=== PATIENT | female | born 1945 | race Caucasian/White ===

== ENCOUNTER 2020-05-06 13:04 | Observation (INO) ==
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
[2020-05-06 13:51] LABS: Urine Bilirubin 1 mg/dl (NEGATIVE); Urine Ketone Negative (NEGATIVE); Urine Nitrite Negative (NEGATIVE); Urine Protein 15 mg/dL (NEGATIVE); Urine Urobilinogen Normal (NORMAL)
[2020-05-06 13:55] LABS: Hematocrit 49.1 % (37.0-47.0); Hemoglobin 15.5 gm/dL (12.5-16.0); Mean Cell Volume 92.6 fl (78-100); Mean Corpuscular Hemoglobin 29.2 pg (27-31); Mean Corpuscular Hgb Conc 31.6 g/dl (32-36); Mean Platelet Volume 11.5 fl (8-12.5); Neutrophil # 11.5 K/mm3 (1.3-6.0); Neutrophil % 83.9 % (42-75.0); Platelet Count 134 K/mm3 (150-450); Red Cell Distribution Width 13.4 % (11.5-14.0); White Blood Count 13.6 K/mm3 (4.0-10.5)
[2020-05-06 13:58] LABS: Albumin * 3.6 gm/dl (3.4-5.0); Anion Gap 9.6 mmol/L (6.8-13.8); Bilirubin, Total 0.5 mg/dL (0.0-1.1); Ca. Corrected For Albumin 9.8 mg/dL (8.4-10.2); Calcium * 9.8 mg/dL (7.9-10.9); Carbon Dioxide 35.1 mmol/L (24-32.6); Potassium 4.7 mmol/L (3.4-4.6); Total Protein 7.1 gm/dL (6.2-8.2)
[2020-05-06] MEDS ORDERED: ACETAMINOPHEN 1,000 MG/100 ML BTL IV ONE (14:02)
[2020-05-06 14:10] LABS: BUN/Creatinine Ratio 15.4 (9.0-21.6)
[2020-05-06 14:17] LABS: Urine Appearance Clear (CLEAR); Urine Blood 5 /ul (NEGATIVE); Urine Color Yellow
[2020-05-06 14:18] LABS: Urine Bacteria TRACE; Urine RBC TRACE /hpf (0-5); Urine WBC TRACE /hpf (0-5)
[2020-05-06] MEDS ORDERED: MORPHINE SULFATE 2 MG/ML DISP.SYRIN IV ONE (15:40)
[2020-05-06] MEDS ORDERED: ACETAMINOPHEN 500 MG TABLET PO PRN (15:55)
[2020-05-06] MEDS ORDERED: ONDANSETRON HCL/PF 2 MG/ML VIAL IV PRN (15:55)
[2020-05-06] MEDS ORDERED: MORPHINE SULFATE 4 MG/ML SYRG IV PRN (15:55)
[2020-05-06] MEDS: SENNOSIDES/DOCUSATE SODIUM 1 TAB TABLET PO SCH (21:50)
[2020-05-07] MEDS: oxyCODONE HCL/ACETAMINOPHEN 1 TAB TABLET PO PRN ×4 (05:42→20:45)
--- NOTE | 2020-05-07 07:55 | HP ---
Chief Complaint - Chief Complaint Date of Service: 05/07/20 Time of Service: 16:00 Chief Complaint: Fall, right knee pain and swelling History of Present Illness: Yisel is a 75 yo female that was getting out of bed this morning when she stepped and her foot got caught on the vent and she fell forward landing on her right knee. She immediately had pain and difficulty getting up. She was finally able to make her way to a phone and call for help. She was brought to the [facility] ER where she had imaging and found to have based on CT, " COMPLEX INTRA-ARTICULAR FRACTURE OF THE LATERAL FEMORAL CONDYLE ASSOCIATED LARGE TRAUMATIC JOINT EFFUSION." Ortho was called and recommended knee immobilizer and no weight bearing. She was in a lot of pain and unable to go home and care for herself as she lives a lone and has no family in the area to help care for herself. She has no help with ADLs and would be unable to care for herself at home in her current condition. Medical History (Last Reviewed 05/06/20 @ 17:28 by Edelmira Duenas RN) History of tibial fracture (Resolved) Onset Date: ~2011 right Hyponatremia (Chronic) Onset Date: ~1980 Hypertension (Chronic) Onset Date: Unknown History of diverticulosis (Resolved) Onset Date: ~1999 Depression (Chronic) Onset Date: Unknown CHF (congestive heart failure) (Chronic) Onset Date: ~2013 History of chicken pox (Resolved) Onset Date: Unknown Hx of cervical malignancy (Resolved) Onset Date: Unknown Anxiety disorder (Chronic) Onset Date: Unknown History of alcohol abuse (Resolved) Onset Date: ~2013 History of Onset Date: ~1980 History of cyst of breast Onset Date: ~1979 excision Surgical History: Surgical History (Last Reviewed 05/06/20 @ 17:28 by Edelmira Duenas RN) History of medial meniscus repair of right knee (Resolved) Onset Date: ~2011 H/O colonoscopy Onset Date: 02/22/06 Bagan-polyps 120cm, 60cm and rectum-hyperplastic H/O excision of ganglion cyst Onset Date: ~2005 right wrist H/O rectal polypectomy Onset Date: ~1985 History of dilation and curettage Onset Date: ~1978 followed by IUD-miscarriage History of total abdominal hysterectomy Onset Date: ~1982 Hx of tonsillectomy Onset Date: ~1953 Family History: Family History (Last Reviewed 05/06/20 @ 17:29 by Edelmira Duenas RN) Father , age 52 Suicide Mother , age 44 Cancer breast Hypertension Social History: (Last Updated 05/06/20 @ 13:20 by Sonia Salmon RN) Social History: Marital status: Single lives independently: Yes Service: No Tobacco: Smoking Status: Current every day smoker Smoking cigarettes per day: 20 Alcohol: alcohol intake: former Substance Use: substance use type: does not use Dietary Habits: caffeine: Yes Review Of Systems (GEN) - Review of Systems Generalized/Overall Review: Present: Weakness. Absent: Chills, Fever Respiratory: Absent: Cough, Shortness of Breath Cardiac: Absent: Chest Pain, Edema Abdominal: Absent: Nausea, Vomiting Genitourinary: Absent: Burning, Urgency Musculoskeletal: Present: Joint Pain, Joint Swelling Neurological: Absent: Headache, Anxiety Skin: Absent: Dryness, Rash Endocrine: Absent: Intolerance to Cold, Intolerance to Heat Immunizations: IMMUNIZATION HX Immunizations Up to Date Yes History of Influenza Vaccine Yes Hx Pneumococcal Vaccination Yes Allergies/Adverse Reactions: Allergies Allergy/AdvReac Type Severity Reaction Status Date / Time sulfamethoxazole AdvReac Nausea Verified 05/06/20 13:20 [From Bactrim] trimethoprim [From Bactrim] AdvReac Nausea Verified 05/06/20 13:20 Home Medications: HOME MEDICATIONS Aspirin [Aspirin Enteric Coated] 325 mg PO DAILY #0 tablet. 02/16/14 [Last Taken Unknown] Multivit-Min/FA/Lycopen/Lutein [[facility]] 1 tab PO DAILY #30 tab 02/16/14 [Last Taken Unknown] Thiamine HCl [Vitamin B-1] 100 mg PO DAILY #30 tab 02/16/14 [Last Taken Unknown] enalapril maleate 5 mg tablet 5 mg PO DAILY #90 tab 12/26/19 [Last Taken Unknown] carvedilol 6.25 mg tablet 6.25 mg PO BID #60 tab 04/30/20 [Last Taken Unknown] Furosemide [Lasix] 160 mg PO DAILY 05/06/20 [Last Taken Unknown] PARoxetine HCL [Paxil] 20 mg PO DAILY 05/06/20 [Last Taken Unknown] Potassium Chloride 20 meq PO BID 05/06/20 [Last Taken Unknown] Exam - Exam Vital Signs: Vital Signs - Last Taken Temp 36.0 C 05/07/20 06:59 Pulse 96 05/07/20 06:59 Resp 18 05/07/20 06:59 BP 143/54 05/07/20 06:59 Pulse Ox 94 05/07/20 06:59 Constitutional: Present: Alert, Oriented x3, Cooperative ENT Exam: Present: hearing grossly normal Eye Exam: bilateral eye: normal inspection Respiratory: Present: lungs clear, normal breath sounds, no respiratory distress Cardiovascular/Chest: Present: regular rate, rhythm, no murmur Peripheral Pulses: dorsalis-pedis (R): 2+, dorsalis-pedis (L): 2+, radial (R): 2+, radial (L): 2+ Abdomen: Present: Normal bowel sounds, soft, nontender, nondistended, no rebound tenderness Extremity: Present: other - right knee immobilzer on, diffuse swelling of right leg originating from knee Skin Exam: Present: normal color, warm/dry, no cyanosis Neurologic: Present: no motor/sensory deficits, alert, normal mood/affect, oriented x 3 Appearance: Present: appropriate appearance, appropriate insight Eye contact: Present: cooperative, good eye contact, normal speech Diagnostic Studies: Abnormal Lab Results 05/06/20 05/06/20 05/06/20 Range/Units 13:33 13:40 13:40 WBC 13.6 H (4.0-10.5) K/mm3 Hct 49.1 H (37.0-47.0) % MCHC 31.6 L (32-36) g/dl Plt Count 134 L (150-450) K/mm3 Immature Gran # (Auto) 0.05 H (0.000-0.0310) K/mm3 Neutrophils % 83.9 H (42-75.0) % Lymphocytes % 9.5 L (20-51) % Neutrophils # 11.5 H (1.3-6.0) K/mm3 Lymphocytes # 1.29 L (1.5-3.5) k/mm3 Sodium 143 H (132-142) mmol/L Plasma Sodium 144 H (130-142) mmol/L Potassium 4.7 H (3.4-4.6) mmol/L Carbon Dioxide 35.1 H (24-32.6) mmol/L Creatinine 1.43 H (0.4-1.4) mg/dL Est GFR (Non-Af Amer) 38 L (60-130) mL/min Random Glucose 151 H (70-110) mg/dL ALT 18 L (19-67) U/L Urine Protein 15 H (NEGATIVE) mg/dL Urine Blood 5 H (NEGATIVE) /ul Urine Bilirubin 1 H (NEGATIVE) mg/dl Urine WBC Trace H (0-5) /hpf Hyaline Casts 5-10 H (NONE) /LPF Microbiology 05/06/20 13:39 Urine Culture - Preliminary Urine,Catheterized No Growth Laboratory Results WBC 13.6 K/mm3 (4.0-10.5) H 05/06/20 13:40 RBC 5.30 M/mm3 (4.2-5.4) 05/06/20 13:40 Hgb 15.5 gm/dL (12.5-16.0) 05/06/20 13:40 Hct 49.1 % (37.0-47.0) H 05/06/20 13:40 MCV 92.6 fl (78-100) 05/06/20 13:40 MCH 29.2 pg (27-31) 05/06/20 13:40 MCHC 31.6 g/dl (32-36) L 05/06/20 13:40 RDW 13.4 % (11.5-14.0) 05/06/20 13:40 Plt Count 134 K/mm3 (150-450) L 05/06/20 13:40 MPV 11.5 fl (8-12.5) 05/06/20 13:40 Immature Gran % (Auto) 0.40 % (0.001-0.429) 05/06/20 13:40 Immature Gran # (Auto) 0.05 K/mm3 (0.000-0.0310) H 05/06/20 13:40 Neutrophils % 83.9 % (42-75.0) H 05/06/20 13:40 Lymphocytes % 9.5 % (20-51) L 05/06/20 13:40 Monocytes % 5.4 % (0.0-9) 05/06/20 13:40 Eosinophils % 0.4 % (0.0-3.0) 05/06/20 13:40 Basophils % 0.4 % (0.0-1.0) 05/06/20 13:40 Nucleated RBC % 0.0 k/mm3 (0-1) 05/06/20 13:40 Neutrophils # 11.5 K/mm3 (1.3-6.0) H 05/06/20 13:40 Lymphocytes # 1.29 k/mm3 (1.5-3.5) L 05/06/20 13:40 Monocytes # 0.7 k/mm3 (0.0-1.0) 05/06/20 13:40 Eosinophils # 0.1 k/mm3 (0.0-0.7) 05/06/20 13:40 Absolute Basophils 0.1 k/mm3 (0.0-0.1) 05/06/20 13:40 Sodium 143 mmol/L (132-142) H 05/06/20 13:40 Plasma Sodium 144 mmol/L (130-142) H 05/06/20 13:40 Potassium 4.7 mmol/L (3.4-4.6) H 05/06/20 13:40 Chloride 103 mmol/L (97-106) 05/06/20 13:40 Carbon Dioxide 35.1 mmol/L (24-32.6) H 05/06/20 13:40 Anion Gap 9.6 mmol/L (6.8-13.8) 05/06/20 13:40 BUN 22 mg/dL (3-23) 05/06/20 13:40 Creatinine 1.43 mg/dL (0.4-1.4) H 05/06/20 13:40 Est GFR (Non-Af Amer) 38 mL/min (60-130) L 05/06/20 13:40 BUN/Creatinine Ratio 15.4 (9.0-21.6) 05/06/20 13:40 Random Glucose 151 mg/dL (70-110) H 05/06/20 13:40 Calcium 9.8 mg/dL (7.9-10.9) 05/06/20 13:40 Calcium Adj for Albumin 9.8 mg/dL (8.4-10.2) 05/06/20 13:40 Total Bilirubin 0.5 mg/dL (0.0-1.1) 05/06/20 13:40 AST 16 U/L (0-48) 05/06/20 13:40 ALT 18 U/L (19-67) L 05/06/20 13:40 Alkaline Phosphatase 110 U/L (50-170) 05/06/20 13:40 Creatine Kinase 57 U/L (0-259) 05/06/20 13:40 Total Protein 7.1 gm/dL (6.2-8.2) 05/06/20 13:40 Albumin 3.6 gm/dl (3.4-5.0) 05/06/20 13:40 Urine Color Yellow 05/06/20 13:33 Urine Appearance Clear (CLEAR) 05/06/20 13:33 Urine pH 6.0 pH (5.0-7.0) 05/06/20 13:33 Ur Specific [place] 1.020 SP.GR. (1.005-1.010) 05/06/20 13:33 Urine Protein 15 mg/dL (NEGATIVE) H 05/06/20 13:33 Urine Glucose (UA) Negative mg/dL (NEGATIVE) 05/06/20 13:33 Urine Ketones Negative mg/dL (NEGATIVE) 05/06/20 13:33 Urine Blood 5 /ul (NEGATIVE) H 05/06/20 13:33 Urine Nitrate Negative (NEGATIVE) 05/06/20 13:33 Urine Bilirubin 1 mg/dl (NEGATIVE) H 05/06/20 13:33 Urine Ictotest Negative (NEGATIVE) 05/06/20 13:33 Prot Sulfosalicylic Acd 1+ mg/dL (0) 05/06/20 13:33 Urine Urobilinogen Normal EU/dl (NORMAL) 05/06/20 13:33 Ur Leukocyte Esterase Negative /ul (NEGATIVE) 05/06/20 13:33 Urine RBC Trace /hpf (0-5) 05/06/20 13:33 Urine WBC Trace /hpf (0-5) H 05/06/20 13:33 Ur Epithelial Cells Trace /hpf (0-5) 05/06/20 13:33 Calcium Oxalate Crystal Trace /hpf (NONE) 05/06/20 13:33 Urine Bacteria Trace (NONE) 05/06/20 13:33 Hyaline Casts 5-10 /LPF (NONE) H 05/06/20 13:33 Urine Culture Comments Culture to follow 05/06/20 13:33 SARS-CoV-2 (PCR) Not detected (ND) 05/06/20 15:53 Assessment/Plan - Narrative Narrative: Yisel is a 75 yo female with COMPLEX INTRA-ARTICULAR FRACTURE OF THE RIGHT LATERAL FEMORAL CONDYLE WITH ASSOCIATED LARGE TRAUMATIC JOINT EFFUSION. She is unable to complete ADLs at home in her current condition and will be admitted into observation for pain control, PT evaluation, and work with case management to see what assistance she can get at home. She also has mild acute kidney injury with elevated creatinine, sodium, and potassium. These are all mild and will be rechecked. May need additional fluids. - Assessment/Plan (1) Hypernatremia Problem: Acute (2) Hyperkalemia Problem: Acute (3) Acute kidney injury Problem: Acute (4) Fracture of medial condyle of femur Problem: Acute Qualifiers: Encounter type: initial encounter Fracture type: closed Fracture alignment: displaced Laterality: right Qualified Code(s): S72.431A - Displaced fracture of medial condyle of right femur, initial encounter for closed fracture
[2020-05-07 08:06] LABS: Hematocrit 48.6 % (37.0-47.0); Hemoglobin 15.3 gm/dL (12.5-16.0); Mean Corpuscular Hemoglobin 29.6 pg (27-31); Mean Corpuscular Hgb Conc 31.5 g/dl (32-36); Mean Platelet Volume 11.4 fl (8-12.5); Neutrophil # 10.4 K/mm3 (1.3-6.0); Neutrophil % 76.2 % (42-75.0); Platelet Count 123 K/mm3 (150-450); Red Blood Count 5.17 M/mm3 (4.2-5.4); Red Cell Distribution Width 13.4 % (11.5-14.0); White Blood Count 13.7 K/mm3 (4.0-10.5)
[2020-05-07] MEDS ORDERED: MORPHINE SULFATE 2 MG/ML DISP.SYRIN IV PRN (08:15)
[2020-05-07 08:18] LABS: Albumin * 3.6 gm/dl (3.4-5.0); Anion Gap 8.2 mmol/L (6.8-13.8); BUN/Creatinine Ratio 17.4 (9.0-21.6); Bilirubin, Total 0.8 mg/dL (0.0-1.1); Ca. Corrected For Albumin 9.2 mg/dL (8.4-10.2); Calcium * 9.2 mg/dL (7.9-10.9); Carbon Dioxide 33.6 mmol/L (24-32.6); Potassium 3.8 mmol/L (3.4-4.6); Total Protein 7.4 gm/dL (6.2-8.2)
[2020-05-07] MEDS: ASPIRIN 325 MG TABLET.DR PO SCH (08:31)
[2020-05-07] MEDS: PARoxetine HCL 20 MG TABLET PO SCH (08:32)
[2020-05-07] MEDS: CARVEDILOL 6.25 MG TABLET PO SCH ×2 (08:32→20:39)
[2020-05-07] MEDS: ENALAPRIL MALEATE 5 MG TABLET PO SCH (08:32)
[2020-05-07] MEDS: THIAMINE HCL 100 MG TABLET PO SCH (08:32)
[2020-05-07] MEDS: MULTIVIT-MIN/FA/LYCOPEN/LUTEIN 1 TAB TABLET PO SCH (08:32)
--- NOTE | 2020-05-07 14:40 | DS ---
(1) Hypernatremia Problem: Resolved (2) Hyperkalemia Problem: Resolved (3) Acute kidney injury Problem: Acute (4) Fracture of medial condyle of femur Problem: Acute Qualifiers: Encounter type: initial encounter Fracture type: closed Fracture alignment: displaced Laterality: right Qualified Code(s): S72.431A - Displaced fracture of medial condyle of right femur, initial encounter for closed fracture Date of Discharge:: 05/07/20 Hospital Course: Yisel was admitted for pain control and inability to complete ADLs at home after falling and injuring her right knee. CT showed right knee COMPLEX INTRA- ARTICULAR FRACTURE OF THE LATERAL FEMORAL CONDYLE ASSOCIATED LARGE TRAUMATIC JOINT EFFUSION. Ortho was consulted and she was placed in right knee immobilizer. Ortho will aspirate off fluid and then she may be discharged to [facility] with PT and OT. She is to be toe touch weight bearing only on the right leg and will follow up with ortho in one week. Procedures Performed: see notes below - Right knee aspiration Results and Findings: Pending Mircobiology Results 05/06/20 13:39 Urine,Catheterized Urine Culture - Preliminary No Growth Lab Pending Results 05/06/20 13:33: Urine Color Yellow, Urine Appearance Clear, Urine pH 6.0, Ur Specific [place] 1.020, Urine Protein 15 H, Urine Glucose (UA) Negative, Urine Ketones Negative, Urine Blood 5 H, Urine Nitrate Negative, Urine Bilirubin 1 H, Urine Ictotest Negative, Prot Sulfosalicylic Acd 1+, Urine Urobilinogen Normal, Ur Leukocyte Esterase Negative, Urine RBC Trace, Urine WBC Trace H, Ur Epithelial Cells Trace, Calcium Oxalate Crystal Trace, Urine Bacteria Trace, Hyaline Casts 5-10 H, Urine Culture Comments Culture to follow 05/06/20 13:40: WBC 13.6 H, RBC 5.30, Hgb 15.5, Hct 49.1 H, MCV 92.6, MCH 29.2, MCHC 31.6 L, RDW 13.4, Plt Count 134 L, MPV 11.5, Immature Gran % (Auto) 0.40, Immature Gran # (Auto) 0.05 H, Neutrophils % 83.9 H, Lymphocytes % 9.5 L, Monocytes % 5.4, Eosinophils % 0.4, Basophils % 0.4, Nucleated RBC % 0.0, Neutrophils # 11.5 H, Lymphocytes # 1.29 L, Monocytes # 0.7, Eosinophils # 0.1, Absolute Basophils 0.1 05/06/20 13:40: Sodium 143 H, Plasma Sodium 144 H, Potassium 4.7 H, Chloride 103, Carbon Dioxide 35.1 H, Anion Gap 9.6, BUN 22, Creatinine 1.43 H, Est GFR (Non-Af Amer) 38 L, BUN/Creatinine Ratio 15.4, Random Glucose 151 H, Calcium 9.8, Calcium Adj for Albumin 9.8, Total Bilirubin 0.5, AST 16, ALT 18 L, Alkaline Phosphatase 110, Creatine Kinase 57, Total Protein 7.1, Albumin 3.6 05/06/20 15:53: SARS-CoV-2 (PCR) Not detected 05/07/20 08:00: WBC 13.7 H, RBC 5.17, Hgb 15.3, Hct 48.6 H, MCV 94.0, MCH 29.6, MCHC 31.5 L, RDW 13.4, Plt Count 123 L, MPV 11.4, Immature Gran % (Auto) 0.30, Immature Gran # (Auto) 0.04 H, Neutrophils % 76.2 H, Lymphocytes % 13.7 L, Monocytes % 8.2, Eosinophils % 1.2, Basophils % 0.4, Nucleated RBC % 0.0, Neutrophils # 10.4 H, Lymphocytes # 1.87, Monocytes # 1.1 H, Eosinophils # 0.2, Absolute Basophils 0.1 05/07/20 08:00: Sodium 139, Plasma Sodium 139, Potassium 3.8, Chloride 101, Carbon Dioxide 33.6 H, Anion Gap 8.2, BUN 28 H, Creatinine 1.61 H, Est GFR (Non- Af Amer) 33 L, BUN/Creatinine Ratio 17.4, Random Glucose 128 H, Calcium 9.2, Calcium Adj for Albumin 9.2, Total Bilirubin 0.8, AST 19, ALT 20, Alkaline Phosphatase 109, Total Protein 7.4, Albumin 3.6 Discharge Location: [facility] Disposition: [facility] Condition: Stable Level of Care: SNF Discharge Activity: Other - Toe touch weight bearing only to right leg. Wear right knee immobilizer continuously Discharge Diet: General/regular food Prison Therapy: Physical Therapy, Occupation Therapy Referrals: Michelle Toribio MD [Primary Care Provider] - Magdiel Mckinney MD [Staff Physician] - One Week Problem Oriented Discharge Instructions to Patient/Family: Distal Femur Fracture, Adult Additional Patient Instructions (free text): [facility] Skilled for therapy. Please call and fax discharge information. Wear Knee immobilizer, non weight bearing, discharge for out patient follow up in Ortho Clinic Follow up in the Orthopedic office with Dr. Mckinney May 15 at 1:30 p.m. Prescriptions (Any new or edited meds): oxyCODONE HCL/ACETAMINOPHEN [Percocet 5 MG/325 MG] 1 tab PO Q4H PRN #120 tab PRN Reason: Moderate Pain (Pain Scale 4-6) Prescription Printed Sennosides/Docusate Sodium [Senokot-S] 2 tab PO HS #60 tab Transmission Status: Pending to [facility] Complete Home Medications List: Complete Home Medication List: Aspirin [Aspirin Enteric Coated] 325 mg PO DAILY #0 tablet. 02/16/14 Multivit-Min/FA/Lycopen/Lutein [[facility]] 1 tab PO DAILY #30 tab 02/16/14 Thiamine HCl [Vitamin B-1] 100 mg PO DAILY #30 tab 02/16/14 enalapril maleate 5 mg tablet 5 mg PO DAILY #90 tab 12/26/19 carvedilol 6.25 mg tablet 6.25 mg PO BID #60 tab 04/30/20 Furosemide [Lasix] 160 mg PO DAILY 05/06/20 PARoxetine HCL [Paxil] 20 mg PO DAILY 05/06/20 Potassium Chloride 20 meq PO BID 05/06/20 Acetaminophen [Tylenol] 650 mg PO Q6H PRN tablet 05/07/20 Sennosides/Docusate Sodium [Senokot-S] 2 tab PO HS #60 tab 05/07/20 oxyCODONE HCL/ACETAMINOPHEN [Percocet 5 MG/325 MG] 1 tab PO Q4H PRN #120 tab 05/07/20 Amb Orders for Discharge: Basic Metabolic Panel Time Frame: 05/09/20, Facility: [facility], Location: Laboratory Forms: Patient Portal Registration
--- NOTE | 2020-05-07 14:59 | CONS ---
- Reason for consultation (1) Fracture of lateral condyle of femur Date of Service: 05/07/20 HPI - General Date of Service: 05/07/20 Narrative: Mrs. Bartlett is a 75-year-old female who lives alone and stepped into a vent hole and sustained a twisting falling episode to her knee. She was unable to weight- bear and was brought to the emergency department at which time x-rays showed suspected lateral avulsion fracture of the distal femur. A CT was obtained which shows in my opinion appeared to be a more chronic appearing lateral femoral condyle as well as a suspected acute avulsion fracture off the lateral femoral condyle. She was unable to mobilize and thus she was admitted for observation and placement for assistance due to the fact that she lives alone. She denies any other areas of pain. She does report a prior knee injury but does not recall the time of it. She notes today that her pain is with lifting her leg but does not bother her at rest. She is wearing the immobilizer at this time. Source: patient Exam Limitations: no limitations - History of Present Illness Timing/Duration: 24 hours Severity: moderate Modifying Factors - (Worsens): Reports: movement Modifying Factors - (Improves): Reports: immobilization Associated Symptoms: denies symptoms Allergies/Adverse Reactions: Allergies sulfamethoxazole [From Bactrim] Adverse Reaction (Verified 05/06/20 13:20) Nausea trimethoprim [From Bactrim] Adverse Reaction (Verified 05/06/20 13:20) Nausea Home Medications: Home Medications Medication Instructions Recorded Last Taken Aspirin [Aspirin Enteric Coated] 325 mg PO DAILY #0 tablet. 02/16/14 Unknown Multivit-Min/FA/Lycopen/Lutein 1 tab PO DAILY #30 tab 02/16/14 Unknown [[facility]] Thiamine HCl [Vitamin B-1] 100 mg PO DAILY #30 tab 02/16/14 Unknown enalapril maleate 5 mg tablet 5 mg PO DAILY #90 tab 12/26/19 Unknown carvedilol 6.25 mg tablet 6.25 mg PO BID #60 tab 04/30/20 Unknown Furosemide [Lasix] 160 mg PO DAILY 05/06/20 Unknown PARoxetine HCL [Paxil] 20 mg PO DAILY 05/06/20 Unknown Potassium Chloride 20 meq PO BID 05/06/20 Unknown Acetaminophen [Tylenol] 650 mg PO Q6H PRN tab 05/07/20 Unknown Sennosides/Docusate Sodium 2 tab PO HS #60 tab 05/07/20 Unknown [Senokot-S] oxyCODONE HCL/ACETAMINOPHEN 1 tab PO Q4H PRN #120 tab 05/07/20 Unknown [Percocet 5 MG/325 MG] Procedures Application of splint (04/23/07) Digital examination of rectum (03/04/06) Endoscopic polypectomy of large intestine (03/04/06) Excision of lesion of tendon sheath of hand (03/04/06) [Endoscopic] polypectomy of rectum (03/04/06) Medications - Medications Current Medications: Current Medications Aspirin (Aspirin Enteric Coated) 325 mg PO DAILY [facility] Stop: 06/06/20 09:01 Last Admin: 05/07/20 08:31 Dose: 325 mg Documented by: Carvedilol (Coreg) 6.25 mg PO BID [facility] Stop: 06/06/20 09:01 Last Admin: 05/07/20 08:32 Dose: 6.25 mg Documented by: Enalapril Maleate (Vasotec) 5 mg PO DAILY [facility] Stop: 06/06/20 09:01 Last Admin: 05/07/20 08:32 Dose: 5 mg Documented by: Multivitamins ([facility]) 1 tab PO DAILY [facility] Stop: 06/06/20 09:01 Last Admin: 05/07/20 08:32 Dose: 1 tab Documented by: Oxycodone/Acetaminophen (Percocet 5 Mg/325 Mg) 1 tab PO Q4H PRN PRN Reason: Moderate Pain (pain scale 4-6) Stop: 06/05/20 15:56 Last Admin: 05/07/20 10:42 Dose: 1 tab Documented by: Paroxetine HCl (Paxil) 20 mg PO DAILY [facility] Stop: 06/06/20 09:01 Last Admin: 05/07/20 08:32 Dose: 20 mg Documented by: Senna/Docusate Sodium (Senokot-S) 2 tab PO HS [facility] Stop: 06/05/20 21:01 Last Admin: 05/06/20 21:50 Dose: 2 tab Documented by: Thiamine HCl (Vitamin B-1) 100 mg PO DAILY [facility] Stop: 06/06/20 09:01 Last Admin: 05/07/20 08:32 Dose: 100 mg Documented by: Review of Systems - Review of Systems Narrative: Negative except for above Physical Examination - Exam Vital Signs: Vital Signs - Last Taken Temp 36.0 C 05/07/20 10:07 Pulse 85 05/07/20 10:07 Resp 16 05/07/20 10:07 BP 135/54 05/07/20 10:07 Pulse Ox 91 L 05/07/20 10:48 O2 Oxygen Delivery Method Nasal Cannula Comprehensive Narative: 05/07/20 14:56 Right lower extremity: Noted knee effusion, no lacerations or abrasions, normal alignment, minimally tender along the lateral femoral condyle and medial femoral condyle. Thigh is soft, no gross defect or Mal position patella. She does not tolerate any stressing of her knee. She is able to flex and extend her toes and ankle, calf is soft, palpable dorsalis pedis pulse, sensations intact light touch, pain with any motion of her knee. Constitutional: Present: Alert, Oriented x3 Respiratory: Present: normal breath sounds Cardiovascular/Chest: Present: normal peripheral pulses - Results and Findings: Narrative: Right knee plain films and right knee CT reviewed by me: Avulsion off the lateral femoral condyle, there is a fracture with some impaction of the lateral femoral condyle as well but this appears somewhat chronic as there is some sclerosis and calcification along the fracture lines which would not be present if this was an acute injury. She has mild impaction and mild joint step-off but otherwise well aligned. Noted knee effusion Lab/Microbiology results last 24 hrs: Abnormal/Pending Laboratory Last 24 HRS 05/07/20 05/07/20 08:00 08:00 WBC 13.7 H Hct 48.6 H MCHC 31.5 L Plt Count 123 L Immature Gran # (Auto) 0.04 H Neutrophils % 76.2 H Lymphocytes % 13.7 L Neutrophils # 10.4 H Monocytes # 1.1 H Carbon Dioxide 33.6 H BUN 28 H Creatinine 1.61 H Est GFR (Non-Af Amer) 33 L Random Glucose 128 H Culture 05/06/20 13:39 Urine Culture - Preliminary Urine,Catheterized No Growth - Assessments/Findings (1) Fracture of lateral condyle of femur Diagnosis(s): I reviewed with the patient that at this point she is not significantly tender in the area of the fracture and there is possible that this is a acute on chronic injury. At this point she will use a needle immobilizer. I will see her back in a week. She can toe-touch weight-bear. Continue with ice and compression. We did discuss an aspiration. Problem: Acute Qualifiers: Encounter type: initial encounter Fracture type: closed Fracture alignment: nondisplaced Laterality: right Qualified Code(s): S72.424A - Nondisplaced fracture of lateral condyle of right femur, initial encounter for closed fracture
[2020-05-07] MEDS ORDERED: NICOTINE 14 MG PATC TD SCH (15:45)
[2020-05-07] MEDS: 0.5 NORMAL SALINE 1,000 ML IV PRN (16:41)
[2020-05-07] MEDS: SENNOSIDES/DOCUSATE SODIUM 1 TAB TABLET PO SCH (20:38)
[2020-05-08] MEDS: oxyCODONE HCL/ACETAMINOPHEN 1 TAB TABLET PO PRN (05:22)
[2020-05-08] MEDS: 0.5 NORMAL SALINE 1,000 ML IV PRN (06:35)
[2020-05-08 08:24] LABS: Hematocrit 42.6 % (37.0-47.0); Hemoglobin 13.2 gm/dL (12.5-16.0); Mean Cell Volume 93.6 fl (78-100); Mean Platelet Volume 11.5 fl (8-12.5); Neutrophil # 8.3 K/mm3 (1.3-6.0); Neutrophil % 73.7 % (42-75.0); Platelet Count 102 K/mm3 (150-450); Red Blood Count 4.55 M/mm3 (4.2-5.4); Red Cell Distribution Width 13.5 % (11.5-14.0); White Blood Count 11.3 K/mm3 (4.0-10.5)
[2020-05-08 08:38] LABS: Albumin * 3.1 gm/dl (3.4-5.0); Anion Gap 4.2 mmol/L (6.8-13.8); BUN/Creatinine Ratio 23.8 (9.0-21.6); Bilirubin, Total 0.6 mg/dL (0.0-1.1); Ca. Corrected For Albumin 9.2 mg/dL (8.4-10.2); Calcium * 8.8 mg/dL (7.9-10.9); Carbon Dioxide 34.9 mmol/L (24-32.6); Potassium 4.1 mmol/L (3.4-4.6); Total Protein 6.7 gm/dL (6.2-8.2)
[2020-05-08] MEDS ORDERED: HYDROcodone/ACETAMINOPHEN 1 EACH TABLET PO PRN (08:55)
[2020-05-08] MEDS: ASPIRIN 325 MG TABLET.DR PO SCH (09:28)
[2020-05-08] MEDS: MULTIVIT-MIN/FA/LYCOPEN/LUTEIN 1 TAB TABLET PO SCH (09:29)
[2020-05-08] MEDS: CARVEDILOL 6.25 MG TABLET PO SCH (09:29)
[2020-05-08] MEDS: THIAMINE HCL 100 MG TABLET PO SCH (09:30)
[2020-05-08] MEDS: ENALAPRIL MALEATE 5 MG TABLET PO SCH (09:30)
[2020-05-08] MEDS: PARoxetine HCL 20 MG TABLET PO SCH (09:30)
--- NOTE | 2020-05-08 10:57 | DS ---
(1) Hypernatremia Problem: Resolved (2) Hyperkalemia Problem: Resolved (3) Acute kidney injury Problem: Acute (4) Fracture of medial condyle of femur Problem: Acute Qualifiers: Encounter type: initial encounter Fracture type: closed Fracture alignment: displaced Laterality: right Qualified Code(s): S72.431A - Displaced fracture of medial condyle of right femur, initial encounter for closed fracture Hospital Course: Yisel was admitted for pain control and inability to complete ADLs at home after falling and injuring her right knee. CT showed right knee COMPLEX INTRA- ARTICULAR FRACTURE OF THE LATERAL FEMORAL CONDYLE ASSOCIATED LARGE TRAUMATIC JOINT EFFUSION. Ortho was consulted and she was placed in right knee immobilizer. She had planned discharge to [facility] but she ortho planned to aspirate fluid and her creatinine increased to 1.6 so she stayed over night and was give fluid. Her creatinine improved to 1.4 and she is feeling better after getting some fluid aspirated out of the knee. She will be discharged to [facility] with PT and OT. She is to be toe touch weight bearing only on the right leg and will follow up with ortho in one week. She was somnolent with percocet and this was changed to hydrocodone. Procedures Performed: see notes below List Procedures: Right knee aspiration 05/07/20 Results and Findings: Lab Pending Results 05/06/20 13:33: Urine Color Yellow, Urine Appearance Clear, Urine pH 6.0, Ur Specific [place] 1.020, Urine Protein 15 H, Urine Glucose (UA) Negative, Urine Ketones Negative, Urine Blood 5 H, Urine Nitrate Negative, Urine Bilirubin 1 H, Urine Ictotest Negative, Prot Sulfosalicylic Acd 1+, Urine Urobilinogen Normal, Ur Leukocyte Esterase Negative, Urine RBC Trace, Urine WBC Trace H, Ur Epithelial Cells Trace, Calcium Oxalate Crystal Trace, Urine Bacteria Trace, Hyaline Casts 5-10 H, Urine Culture Comments Culture to follow 05/06/20 13:40: WBC 13.6 H, RBC 5.30, Hgb 15.5, Hct 49.1 H, MCV 92.6, MCH 29.2, MCHC 31.6 L, RDW 13.4, Plt Count 134 L, MPV 11.5, Immature Gran % (Auto) 0.40, Immature Gran # (Auto) 0.05 H, Neutrophils % 83.9 H, Lymphocytes % 9.5 L, Monocytes % 5.4, Eosinophils % 0.4, Basophils % 0.4, Nucleated RBC % 0.0, Neutrophils # 11.5 H, Lymphocytes # 1.29 L, Monocytes # 0.7, Eosinophils # 0.1, Absolute Basophils 0.1 05/06/20 13:40: Sodium 143 H, Plasma Sodium 144 H, Potassium 4.7 H, Chloride 103, Carbon Dioxide 35.1 H, Anion Gap 9.6, BUN 22, Creatinine 1.43 H, Est GFR (Non-Af Amer) 38 L, BUN/Creatinine Ratio 15.4, Random Glucose 151 H, Calcium 9.8, Calcium Adj for Albumin 9.8, Total Bilirubin 0.5, AST 16, ALT 18 L, Alkaline Phosphatase 110, Creatine Kinase 57, Total Protein 7.1, Albumin 3.6 05/06/20 15:53: SARS-CoV-2 (PCR) Not detected 05/07/20 08:00: WBC 13.7 H, RBC 5.17, Hgb 15.3, Hct 48.6 H, MCV 94.0, MCH 29.6, MCHC 31.5 L, RDW 13.4, Plt Count 123 L, MPV 11.4, Immature Gran % (Auto) 0.30, Immature Gran # (Auto) 0.04 H, Neutrophils % 76.2 H, Lymphocytes % 13.7 L, Monocytes % 8.2, Eosinophils % 1.2, Basophils % 0.4, Nucleated RBC % 0.0, Neutrophils # 10.4 H, Lymphocytes # 1.87, Monocytes # 1.1 H, Eosinophils # 0.2, Absolute Basophils 0.1 05/07/20 08:00: Sodium 139, Plasma Sodium 139, Potassium 3.8, Chloride 101, Carbon Dioxide 33.6 H, Anion Gap 8.2, BUN 28 H, Creatinine 1.61 H, Est GFR (Non- Af Amer) 33 L, BUN/Creatinine Ratio 17.4, Random Glucose 128 H, Calcium 9.2, Calcium Adj for Albumin 9.2, Total Bilirubin 0.8, AST 19, ALT 20, Alkaline Phosphatase 109, Total Protein 7.4, Albumin 3.6 05/08/20 08:14: WBC 11.3 H, RBC 4.55, Hgb 13.2, Hct 42.6, MCV 93.6, MCH 29.0, MCHC 31.0 L, RDW 13.5, Plt Count 102 L, MPV 11.5, Immature Gran % (Auto) 0.20, Immature Gran # (Auto) 0.02, Neutrophils % 73.7, Lymphocytes % 15.9 L, Monocytes % 7.1, Eosinophils % 2.7, Basophils % 0.4, Nucleated RBC % 0.0, Neutrophils # 8.3 H, Lymphocytes # 1.79, Monocytes # 0.8, Eosinophils # 0.3, Absolute Basophils 0.0 05/08/20 08:14: Sodium 131 L, Plasma Sodium 132, Potassium 4.1, Chloride 96 L, Carbon Dioxide 34.9 H, Anion Gap 4.2 L, BUN 35 H, Creatinine 1.47 H, Est GFR (Non-Af Amer) 37 L, BUN/Creatinine Ratio 23.8 H, Random Glucose 169 H D, Calcium 8.8, Calcium Adj for Albumin 9.2, Total Bilirubin 0.6, AST 22, ALT 20, Alkaline Phosphatase 93, Total Protein 6.7, Albumin 3.1 L Discharge Location: [facility] Disposition: SNF Condition: Stable Discharge Activity: Other - Right leg toe touch weight bearing only Discharge Diet: General/regular food Referrals: Magdiel Mckinney MD [Staff Physician] - One Week Problem Oriented Discharge Instructions to Patient/Family: Distal Femur Fracture, Adult Additional Patient Instructions (free text): [facility] Skilled for therapy. Please call and fax discharge information. Wear Knee immobilizer, toe touch weight bearing, discharge for out patient follow up in Ortho Clinic Follow up in the Orthopedic office with Dr. Mckinney May 15 at 1:30 p.m. Continue oxygen at 2lpm continuous. May wean from oxygen as able with goal to keep oxygen 90% or above. Attempt to wean to room air. Prescriptions (Any new or edited meds): Nicotine [Nicoderm] 14 mg TD Q24H #30 [email or web address] Transmission Status: Pending to [facility] HYDROcodone/ACETAMINOPHEN [[place] 5-325] 1 each PO Q4H PRN #120 tablet PRN Reason: Moderate Pain (Pain Scale 4-6) Transmission Status: Sent to [facility] Sennosides/Docusate Sodium [Senokot-S] 2 tab PO HS #60 tab Transmission Status: Received by [facility] Complete Home Medications List: Complete Home Medication List: Aspirin [Aspirin Enteric Coated] 325 mg PO DAILY #0 tablet. 02/16/14 Multivit-Min/FA/Lycopen/Lutein [[facility]] 1 tab PO DAILY #30 tab 02/16/14 Thiamine HCl [Vitamin B-1] 100 mg PO DAILY #30 tab 02/16/14 enalapril maleate 5 mg tablet 5 mg PO DAILY #90 tab 12/26/19 carvedilol 6.25 mg tablet 6.25 mg PO BID #60 tab 04/30/20 Furosemide [Lasix] 160 mg PO DAILY 05/06/20 PARoxetine HCL [Paxil] 20 mg PO DAILY 05/06/20 Potassium Chloride 20 meq PO BID 05/06/20 Acetaminophen [Tylenol] 650 mg PO Q6H PRN tab 05/07/20 Sennosides/Docusate Sodium [Senokot-S] 2 tab PO HS #60 tab 05/07/20 HYDROcodone/ACETAMINOPHEN [[place] 5-325] 1 each PO Q4H PRN #120 tablet 05/08/20 Nicotine [Nicoderm] 14 mg TD Q24H #30 patch.[email or web address] 05/08/20 Amb Orders for Discharge: Basic Metabolic Panel Time Frame: 05/09/20, Facility: [facility], Location: Laboratory Forms: Patient Portal Registration
[2020-05-08 11:15] VITALS: BP 115/53
== END 2020-05-08 11:55 ==
LOC: MS 13:04 → ER 13:04 → MS 16:30
PROVIDERS: ADMIT Family Medicine; ATTEND Family Medicine
DX: E87.5 Hyperkalemia; W01.0XXA Fall on same level from slipping, tripping and stumbling without subsequent striking against object, initial encounter; E87.0 Hyperosmolality and hypernatremia; F17.210 Nicotine dependence, cigarettes, uncomplicated; S72.421A Displaced fracture of lateral condyle of right femur, initial encounter for closed fracture; N17.9 Acute kidney failure, unspecified; J44.9 Chronic obstructive pulmonary disease, unspecified; I10 Essential (primary) hypertension
CPT/HCPCS: 36415; 73562; 73700; 80053; 81001; 82550; 85025; 87086; 93005; 96361; 96365; 96375; 96376; 97110; 97162; 97530; 99285; C9803; G0378; J0131